=== PATIENT | female | born 1995 | race Caucasian/White ===

== ENCOUNTER 2017-05-26 18:23 | Emergency (ER) | payer BC ==
[2017-05-26 18:51] VITALS: BP 125/81
--- NOTE | 2017-05-26 19:27 | UC ---
Respiratory Complaint HPI - HPI Summary HPI Summary: C/O aches and pains last night. Began with cough with wheezing post tussive emesis from this morning. Nasal congestion. Headache last night. Not sinus. H/O asthma. - History of Current Complaint Chief Complaint: UCGeneralIllness Stated Complaint: FLU LIKE Hx Obtained From: Patient Hx Last Menstrual Period: 05/23/17 ?: No Onset/Duration: Sudden Onset, Lasting Days - 1, Worse Since - today Severity Initially: Mild Severity Currently: Moderate Pain Intensity: 7 Character: Cough: Nonproductive Aggravating Factors: Deep Breaths Alleviating Factors: Nothing Associated Signs And Symptoms: Positive: Dyspnea, Fever, Chills, Wheezing, URI, Nasal Congestion - Allergies/Home Medications Allergies/Adverse Reactions: Allergies Allergy/AdvReac Type Severity Reaction Status Date / Time No Known Allergies Allergy Verified 05/26/17 18:50 Home Medications: Home Medications Sertraline* [Zoloft*] 25 mg PO DAILY 05/26/17 [History Confirmed 05/26/17] [email or web address] ER TAB [Mucinex*] 600 mg PO BID 05/26/17 [History Confirmed 05/26/17 ] PMH/Surg Hx/FS Hx/Imm Hx Previously Healthy: Yes - Surgical History Surgical History: None - Family History Known Family History: Positive: Diabetes Negative: Cardiac Disease, Hypertension - Social History Occupation: Student Lives: Dormitory/Roommates Alcohol Use: Rare Substance Use Type: None Smoking Status (MU): Never Smoked Tobacco Have You Smoked in the Last Year: No Review of Systems Constitutional: Fever, Chills ENT: Nasal Discharge Respiratory: Shortness Of Breath, Cough Musculoskeletal: Myalgia Neurological: Headache Is Patient Immunocompromised?: No All Other Systems Reviewed And Are Negative: Yes Physical Exam Triage Information Reviewed: Yes Appearance: No Pain Distress, Well-Nourished, Ill-Appearing Vital Signs: Initial Vital Signs Temp 99.0 F 05/26/17 18:45 Pulse 96 05/26/17 18:45 Resp 16 05/26/17 18:45 BP 125/81 05/26/17 18:45 Pulse Ox 100 05/26/17 18:45 Vital Signs Reviewed: Yes Eyes: Positive: Conjunctiva Clear ENT: Positive: Pharynx normal, Nasal congestion, TMs normal Neck: Positive: Supple, Tenderness @, Enlarged Nodes @ - bilateral anterior cervical Respiratory: Positive: Wheezing - diffuse expiratory Cardiovascular Exam: Normal Abdomen Description: Positive: Nontender, No Organomegaly, Soft Musculoskeletal Exam: Normal Neurological Exam: Normal Psychological Exam: Normal Skin Exam: Normal UC Diagnostic Evaluation - Laboratory O2 Sat by Pulse Oximetry: 100 Respiratory Course/Dx - Differential Dx/Diagnosis Differential Diagnosis/HQI/PQRI: Asthma, Lower Resp Infection, Sinusitis Provider Diagnoses: Acute URI. Asthma with acute exacerbation Discharge - Discharge Plan Condition: Stable Disposition: HOME Prescriptions: Albuterol HFA INHALER* [Ventolin HFA Inhaler*] 2 puff INH Q4H PRN #1 mdi PRN Reason: Wheezing predniSONE TAB* [Deltasone TAB*] 20 mg PO DAILY #18 tab Patient Education Materials: Upper Respiratory Infection (ED), Asthma (ED), Prednisone (By mouth) Referrals: Non Staff,Doctor [Primary Care Provider] - Additional Instructions: NASAL SPRAYS AND DROPS: Afrin in the PUMP/ MIST bottle (Get generic 12 hours nasal decongestant spray). Tilt your head down and look at the floor while doing a strong sniff with the spray. Decongestant nasal sprays and drops often give dramatic relief from congestion. They are often recommended for patients with sinus infection to assist with sinus drainage. Persons with high blood pressure should consult the doctor before using these nasal sprays. Afrin and Yahir-Synephrine are common [id number] preparations. They should not be used for more than five days, as "rebound" congestion can occur - - the congestion flares as the drug wears off. A way of dealing with this rebound congestion problem is to medicate only one nostril each time, allowing the other nostril to recover from the medicine' s effects. When you no longer need the drug during the day, spray only one nostril each night. This helps you sleep well without severe rebound congestion. Call the doctor if you develop severe headache, palpitations, or chest pain.
[2017-05-26] MEDS ORDERED: predniSONE TAB* 20 MG PO ONE (19:28)
== END 2017-05-26 19:42 | disposition home or self-care (01) ==
LOC: UCCORT 18:23
DX: J06.9 Acute upper respiratory infection, unspecified (principal); J45.901 Unspecified asthma with (acute) exacerbation
CPT/HCPCS: 87502; 99202; G0463; J7512